=== PATIENT | female | born 1955 | race Caucasian/White ===

== ENCOUNTER 2017-05-09 07:31 | Outpatient (CLI) | payer OTHER ==
--- NOTE | 2017-05-10 17:47 | Mammography Report ---
DIGITAL SCREENING MAMMOGRAM: 05/09/2017 CLINICAL INDICATION: A 61-year-old, for screening. COMPARISON: 02/2015, 01/2013, 01/2012, 12/2010, 11/2009, 11/2008. TECHNIQUE: Routine CC and MLO projections were obtained of the breasts. Bilateral laterally exaggera evelio craniocaudal views. FINDINGS: The breasts again demonstrate heterogeneously dense fibroglandular parenchyma bilaterally. Coarse and punctate, typically benign calcifications are present. No suspicious masses, clustered mi crocalcifications, or regions of architectural distortion are identified. IMPRESSION: BENIGN FINDINGS. RECOMMENDATION: ROUTINE ANNUAL SCREENING UNLESS OTHERWISE CLINICALLY INDICATED. BIRADS CATEGORY 2-BENIGN FINDINGS. STANDARD QUALIFYING STATEMENTS 1. This examination was reviewed with the aid of Computer-Aided Detection (CAD). 2. A negative or benign imaging report should not delay biopsy if clinically suspicious findings are present. Consider surgical consultation if warranted. More than 5% of cancers are not identified by i maging. 3. Dense breasts may obscure an underlying neoplasm. JOB #: [id number] EXT JOB #:[id number]
== END 2017-05-09 07:32 | disposition home or self-care (01) ==
LOC: DI 07:31
PROVIDERS: ATTEND Family Medicine Adult Medicine
DX: Z12.31 Encounter for screening mammogram for malignant neoplasm of breast (principal)
CPT/HCPCS: 77067

== ENCOUNTER 2017-09-19 10:37 | Outpatient (CLI) | payer OTHER | END 2017-09-19 10:38 | disposition home or self-care (01) | LOC: SC 10:37 | PROVIDERS: ATTEND Specialist | DX: R53.83 Other fatigue (principal); R06.83 Snoring; E66.9 Obesity, unspecified | CPT/HCPCS: 99205; 99212 ==

== ENCOUNTER 2017-11-20 21:46 | Outpatient (CLI) | payer OTHER | END 2017-11-20 21:47 | disposition home or self-care (01) | LOC: SC 21:46 | PROVIDERS: ATTEND Specialist | DX: R53.83 Other fatigue (principal); R06.83 Snoring | CPT/HCPCS: 95810 ==

== ENCOUNTER 2017-12-09 09:04 | Outpatient (CLI) | payer OTHER | END 2017-12-09 09:05 | disposition home or self-care (01) | LOC: SC 09:04 | PROVIDERS: ATTEND Internal Medicine Pulmonary Disease | DX: R06.83 Snoring (principal) | CPT/HCPCS: 99212; 99213 ==

== ENCOUNTER 2023-01-24 09:32 | Outpatient (CLI) | payer OTHER, MEDICARE ==
[2023-01-24 14:47] LABS: THYROID STIMULATING HORMONE 0.96 uIU/mL (0.34-5.60)
== END 2023-01-24 09:33 | disposition home or self-care (01) ==
LOC: LAB.S 09:32
PROVIDERS: ATTEND Nurse Practitioner Family
DX: E03.9 Hypothyroidism, unspecified (principal); R79.89 Other specified abnormal findings of blood chemistry
CPT/HCPCS: 36415; 82607; 84443

== ENCOUNTER 2023-11-08 08:00 | Outpatient (CLI) | payer MEDICARE ==
--- NOTE | 2023-11-08 13:05 | XRAY Report ---
PROCEDURE: Wrist 3+V LT INDICATIONS: LEFT WRIST FRACTURE TECHNIQUE: 3 views of the wrist were acquired. COMPARISON: None. FINDINGS: Bones: There is a comminuted displaced intra-articular fracture of the distal radius with dorsal dis placement and dorsal angulation. No distal ulnar fracture is seen. There are moderate degenerative ch anges along the radial aspect of the wrist. Soft tissues: Soft tissue edema seen surrounding the wrist. IMPRESSION: Comminuted displaced intra-articular fracture of the distal radius. Reviewed by: Vikas Winn MD on 11/08/2023 1:04 PM [facility] [place] Approved by: Vikas Winn MD on 11/08/2023 1:04 PM [facility] [place] Station ID: [id number]
--- NOTE | 2023-11-08 14:23 | XRAY Report ---
PROCEDURE: Wrist 3+V LT INDICATIONS: POST REDUCTION TECHNIQUE: 3 views of the wrist were acquired. COMPARISON: Left wrist radiographs 11/08/2023. FINDINGS: Bones: Status post reduction of the previously seen comminuted intra-articular distal radial fractur e. Overall alignment has improved. No new osseous abnormality is seen. Soft tissues: No suspicious soft tissue calcifications or masses. IMPRESSION: Interval reduction of the comminuted intra-articular distal radial fracture with improved alignment. Reviewed by: Vikas Winn MD on 11/08/2023 2:22 PM PST Approved by: Vikas Winn MD on 11/08/2023 2:22 PM PST Station ID: [id number]
== END 2023-11-08 23:59 | disposition home or self-care (01) ==
LOC: DI.S 08:00
PROVIDERS: ATTEND Emergency Medicine
DX: S52.572A Other intraarticular fracture of lower end of left radius, initial encounter for closed fracture (principal)

== ENCOUNTER 2024-01-31 09:55 | Outpatient (CLI) | payer MEDICARE ==
--- NOTE | 2024-01-31 14:54 | DEXA Report ---
PROCEDURE: Dexa Spine and/or Hip INDICATIONS: OSTEOPENIA TECHNIQUE: Dual energy x-ray absorptiometry (DXA) was performed on a cloudswave System. Regions measur ed are the AP Spine, femoral neck, and if needed forearm. COMPARISON: None FINDINGS: Lumbar Spine: Bone Mineral Density: 1.509 g/cm/cm,T score: 2.7. Left Femoral Neck: Bone Mineral Density: 0.831 g/cm/cm, T score: -1.5. Left Hip: Bone Mineral Density: 0.914 g/cm/cm,T score: -0.7. (T score greater or equal to -1.0: NORMAL) (T score from -1.1 to -2.4: OSTEOPENIA) (T score less than or equal to -2.5 to: OSTEOPOROSIS) Impression: By WHO criteria, this patient has low bone density (osteopenia). Patients with diagnosis of osteoporosis or osteopenia should have regular bone mineral density assess ment. For those eligible for Medicare, routine testing is allowed once every 2 years. Testing frequ ency can be increased for patients who have rapidly progressing disease or for those who are receivin g medical therapy to restore bone mass. Reviewed by: Marleny Glasgow MD on 01/31/2024 2:52 PM PDT Approved by: Marleny Glasgow MD on 01/31/2024 2:52 PM PDT Station ID: [id number]
== END 2024-01-31 09:56 | disposition home or self-care (01) ==
LOC: DI 09:55
PROVIDERS: ATTEND Nurse Practitioner Family
DX: M85.88 Other specified disorders of bone density and structure, other site (principal)

== ENCOUNTER 2024-02-06 09:33 | Outpatient (CLI) | payer MEDICARE ==
--- NOTE | 2024-02-07 09:42 | Mammography Report ---
BILATERAL DIGITAL SCREENING MAMMOGRAM 3D/2D: 02/06/2024 CLINICAL: Routine screening. Comparison is made to exams dated: 02/04/2023 mammogram, 02/01/2022 mammogram, 03/13/2021 mammogram, ultrasound, and 01/24/2021 mammogram - [facility]. Both breasts are heterogeneously dense, which may obscure small masses (category c / 51-75% glandular tissue). No significant masses, calcifications, or other findings are seen in either breast. There has been no significant interval change. IMPRESSION: NEGATIVE There is no mammographic evidence of malignancy. A 1 year screening mammogram is recommended. Based on the Tyrer Cuzick model (a risk assessment model) the patient's lifetime risk is 7.3% and her 10 year risk is 4.0%. According to the ACR, ACS, and NCCN guidelines, an annual breast MRI exam natalie g with mammogram is recommended if the patient's lifetime risk is 20% or greater. This exam was interpreted at Station ID: [id number]. NOTE: For mammograms, a report in lay terms will be sent to the patient. Approximately 15% of breast malignancies will not be visualized mammographically. In the management of a palpable breast mass, a negative mammogram must not discourage biopsy of a clinically suspicious lesion. Electronically Signed By: Namrata oLndon M.D., Ph.D. /[email or web address]:02/06/2024 22:25:46 letter sent: No_Letter ACR BI-RADS Category 1: Negative 3341F PARENCHYMAL PATTERN: (D) - The breast(s) demonstrate(s) heterogeneously dense fibroglandular virgilio ospina. BI-RADS CATEGORY: (1) - 1 RECOMMENDATION: (ANNUAL) - Recommend routine annual screening mammography. [id number] 1 year screening LATERALITY: (B)
== END 2024-02-06 09:34 | disposition home or self-care (01) ==
LOC: DI 09:33
PROVIDERS: ATTEND Nurse Practitioner Family
DX: Z12.31 Encounter for screening mammogram for malignant neoplasm of breast (principal); R92.333 Mammographic heterogeneous density, bilateral breasts